=== PATIENT | male | born 1990 | race Caucasian/White ===

== ENCOUNTER 2018-05-10 14:23 | Outpatient (CLI) | END 2018-05-10 14:24 | disposition home or self-care (01) | LOC: FCC-LAB 14:23 | PROVIDERS: ATTEND Family Medicine | DX: Z00.00 Encounter for general adult medical examination without abnormal findings (principal); Z13.220 Encounter for screening for lipoid disorders | CPT/HCPCS: 36415; 80053; 80061 ==